=== PATIENT | female | born 1985 | race Caucasian/White ===

== ENCOUNTER 2017-03-21 08:38 | Emergency (ER) | payer SELFPAY ==
[2017-03-21 08:55] VITALS: BP 185/102; BMI 32.8
--- NOTE | 2017-03-21 09:33 | DR.GENAD ---
HPI - PCP Primary Care Physician: TERENCE - Complaint/Symptoms Chief Complaint Doctors Comments: Patient denies any history of head trauma. Patient admits to having a history of allergy and takes claritin. Chief Complaint:: PATIENT STATED THAT FOR THE LAST WEEK THE BACK OF HER HEAD HAS A SOFTBALL SIZE SPOT THAT SHE CAN'T STAND TO TOUCH OR LAY ON IT. - Source History Provided: Patient - Mode of Arrival Mode of Arrival: Ambulatory - Timing Onset of Chief Complaint: 03/14/17 PMH - PMH Past Medical History: Yes Past Medical History: Hypertension Past Surgical History: Yes Surgical History: , Cholecystectomy, Hysterectomy - Family History History of Family Medical Conditions: Yes Family Medical History: Diabetes Mellitus, Cancer, Coronary Artery Disease, Hypertension - Social History Does patient currently use any type of tobacco product: Yes Have you used tobacco products in the last 12 months: Yes Type of Tobacco Use: Cigarettes Does any household member use tobacco: No Alcohol Use: None Do you use any recreational Drugs:: No Lives With: Family Lives Where: Home - infectious screening In the last 2 months have you had wt loss of >10#?: NO Have you had fever, night sweats or hemotysis?: No Have you traveled outside the country in the last 6 months?: No Isolation: Standard ROS - Review of Systems Constitutional: negative: Diaphoresis Eyes: No Symptoms Reported ENTM: No Symptoms Reported Respiratoy: No Symptoms Reported Cardiovascular: No Symptoms Reported Gastrointestinal/Abdominal: No Symptoms Reported Genitourinary: No Symptoms Reported Neurological: No Symptoms Reported Musculoskeletal: No Symptoms Reported Integumentary: No Symptoms Reported Hematologic/Lymphatic: No Symptoms Reported Endocrine: No Symptoms Reported Psychiatric: No Symptoms Reported All Other Systems: Reviewed and Negative PE - Vital Signs Vitals: Temperature 97.7 F Pulse Rate 70 Respiratory Rate 20 Blood Pressure [Left Arm] 159/101 Blood Pressure 185/102 O2 Sat by Pulse Oximetry 97 - General Limitations: No Limitations General Appearance: Alert, In No Apparent Distress - Head Head Exam: Normal Inspection, Atraumatic - Eyes Eye exam: Normal Appearance, PERRL, EOMI - ENT ENT Exam: Normal Exam External Ear Exam: Normal External Inspection TM/Canal Exam: Bilateral Normal Nose Exam: Normal Nose Exam Mouth Exam: Normal Inspection Throat Exam: Normal Inspection - Neck Neck Exam: Normal Inspection - Chest Chest Inspection: Normal Inspection - Respiratory Respiratory Exam: Accessory Muscle Use Respiratory Exam: Bilateral Clear to Auscultation - Cardiovascular Cardiovascular Exam: Regular Rate, Normal Rhythm - Abdominal Exam Abdominal Exam: Normal Inspection Abdominal Tenderness: negative: RUQ, RLQ, LUQ, LLQ, Epigastrium, Suprapubic, Diffuse, Mild, Moderate, Severe, Other - Extremities Extremities Exam: Normal Inspection - Back Back Exam: Normal Inspection, Full ROM - Neurologic Neurological Exam: Alert, Oriented X3, CN II-XII Intact - Psychiatric Psychiatric Exam: Normal Affect, Normal Mood - Skin Skin Exam: Warm, Dry, Intact Course - Reevaluation 1st: Unchanged - Diagnosis Discharge Problem: normocephalic skull Allergic symptoms Qualifiers: Encounter type: initial encounter Qualified Code(s): T78.40XA - Allergy, unspecified, initial encounter - Discharge Plan Condition: Stable - Follow ups/Referrals Follow ups/Referrals: MARCEL PRATT [Primary Care Provider] - 3 days - Instructions
== END 2017-03-21 09:49 | disposition home or self-care (01) ==
LOC: ER 09:03
DX: T78.40XA Allergy, unspecified, initial encounter (principal)
CPT/HCPCS: 99281; 99282

== ENCOUNTER 2024-10-31 18:32 | Observation (INO) ==
[2024-10-31 18:50] LABS: MEAN PLATELET VOLUME 8.4 fL (7.4-11.0); RED CELL DISTRIBUTION WIDTH 14.8 % (11.6-16.5)
[2024-10-31 18:59] LABS: INR 0.98 (0.8-1.3)
--- NOTE | 2024-10-31 19:10 | CT ---
EXAM: BRAIN W/O CON HISTORY: L frontal headache took tylenol that didnt help, took motrin around 1400 that still has not helped. having right facial numbness and dizziness and a littel visual disburance in her rt. eye.; COMPARISON: None. TECHNIQUE: CT of the head without contrast FINDINGS: No hemorrhage or extra-axial collection. There is a 1.3 cm hypodensity in the left merritt radiata white matter which could represent subacute focus of ischemia. Appropriate ventricular size. The mastoid air cells are clear. No skull fracture. No suspicious bony lesion. IMPRESSION: 1.3 cm hypodensity left merritt radiata white matter suggesting a focus of subacute ischemia. No hemorrhagic transformation. All CT scans at this facility use dose modulation, iterative reconstruction, and/or weight based dosing when appropriate to reduce radiation dose to as low as reasonably achievable. THIS IS AN ELECTRONICALLY VERIFIED FINAL REPORT 10/31/2024 7:07 PM - Electronically signed by Mann Aranda MD
[2024-10-31 19:11] LABS: CHOL/HDL RATIO 3.1 (0.0-5.0); COR NA(FOR HYPERGLY) 141 mmol/L (136-145); CREATININE 0.74 mg/dL (0.55-1.02); eGFR NON BLACK RACES > 60 (>60)
--- NOTE | 2024-10-31 19:26 | DR.WEAKNES ---
HPI Time Seen Time Seen by Provider: 10/31/24 19:24 Primary Care Physician Primary Care Physician: gabe HPI Comment HPI Comment: Patient with complaint of left frontal headache and facial drooping that started this morning around 6 AM. She does have a history of a CVA in 2022 that left some residual weakness on the right upper extremity. About an hour prior to arrival she started having facial numbness and dizziness. She did have an episode of vomiting and nausea prior to arrival but denies any nausea at this time. Teleneurology was consulted. Complaints Chief Complaint:: Patient states this morning around 0600 she started having a L frontal headache she took tylenol that didnt help she took motrin around 1400 that still has not helped. About a hour ago she started having right facial numbness and dizziness and a littel visual disburance in her right eye. She did get nauseous before she came and vomitted x1 but denies nausea now. She states she had a previous cva in july 2022 that affected the right side. Self Treatment fo Chief Complaint: motrin 1400 Source History Provided: Patient Mode of Arrival Mode of Arrival: Wheelchair Timing Onset of Chief Complaint: 10/31/24 Symptom Onset: Known Context Stroke Symptoms: Dizziness PMH PMH Past Medical History: Yes Past Medical History: CVA, Dyslipidemia, Hypertension and Cancer Past Medical History Comment: right kidney ca Past Surgical History: Yes Surgical History: , Cholecystectomy and Hysterectomy Past Surgical History Comment: mass removed from left breast Family History History of Family Medical Conditions: Yes Family Medical History: Diabetes Mellitus, Cancer, Coronary Artery Disease and Hypertension Social History Does patient currently use any type of tobacco product: Yes Have you used tobacco products in the last 12 months: Yes Type of Tobacco Use: Cigarettes Does any household member use tobacco: Yes Alcohol Use: None Do you use any recreational Drugs:: No Lives With: Family Lives Where: Home Travel Risk Coronavirus risk:travel/contact w/high risk person: No Has patient experienced Coronavirus symptoms: No Infectious screening In the last 2 months have you had wt loss of >10#?: NO Have you had fever, night sweats or hemotysis?: No Have you traveled outside the country in the last 6 months?: No Isolation: Standard ROS Review of Systems Constitutional: No Symptoms Reported Eyes: No Symptoms Reported ENTM: No Symptoms Reported Respiratoy: No Symptoms Reported Cardiovascular: No Symptoms Reported Gastrointestinal/Abdominal: No Symptoms Reported Genitourinary: No Symptoms Reported Neurological: See HPI Musculoskeletal: No Symptoms Reported Integumentary: No Symptoms Reported Hematologic/Lymphatic: No Symptoms Reported Endocrine: No Symptoms Reported Psychiatric: No Symptoms Reported All Other Systems: Reviewed and Negative PE Vital Signs Vitals: Vital Signs Temperature 98.3 F Pulse Rate 68 Pulse Rate 65 Pulse Rate 65 Pulse Rate 66 Pulse Rate 68 Pulse Rate 69 Pulse Rate 69 Pulse Rate 92 Pulse Rate 72 Pulse Rate 68 Pulse Rate 67 Pulse Rate 68 Pulse Rate 68 Pulse Rate 68 Pulse Rate 69 Pulse Rate 67 Pulse Rate 67 Pulse Rate 69 Pulse Rate 69 Pulse Rate 69 Pulse Rate 73 Pulse Rate 71 Pulse Rate 72 Pulse Rate 70 Pulse Rate 70 Pulse Rate 73 Pulse Rate 71 Pulse Rate 83 Respiratory Rate 20 Respiratory Rate 21 Respiratory Rate 21 Respiratory Rate 23 Respiratory Rate 23 Respiratory Rate 26 Respiratory Rate 27 Respiratory Rate 23 Respiratory Rate 26 Respiratory Rate 27 Respiratory Rate 25 Respiratory Rate 26 Respiratory Rate 28 Respiratory Rate 27 Respiratory Rate 25 Respiratory Rate 24 Respiratory Rate 23 Respiratory Rate 16 Blood Pressure 156/81 Blood Pressure 152/80 Blood Pressure 168/89 Blood Pressure 171/87 Blood Pressure 191/93 Blood Pressure 185/88 Blood Pressure 186/90 Blood Pressure 187/90 Blood Pressure 191/92 Blood Pressure 183/88 Blood Pressure 184/82 Blood Pressure 193/94 Blood Pressure 187/93 Blood Pressure 189/104 Blood Pressure 187/106 Blood Pressure 178/103 Blood Pressure 176/106 Blood Pressure 173/108 Blood Pressure 173/115 Blood Pressure 176/94 Blood Pressure 178/88 Blood Pressure 198/95 Blood Pressure 199/93 Blood Pressure 215/111 O2 Sat by Pulse Oximetry 95 O2 Sat by Pulse Oximetry 96 O2 Sat by Pulse Oximetry 96 O2 Sat by Pulse Oximetry 96 O2 Sat by Pulse Oximetry 98 O2 Sat by Pulse Oximetry 97 O2 Sat by Pulse Oximetry 97 O2 Sat by Pulse Oximetry 98 O2 Sat by Pulse Oximetry 97 O2 Sat by Pulse Oximetry 97 O2 Sat by Pulse Oximetry 97 O2 Sat by Pulse Oximetry 98 O2 Sat by Pulse Oximetry 98 O2 Sat by Pulse Oximetry 97 O2 Sat by Pulse Oximetry 97 O2 Sat by Pulse Oximetry 98 O2 Sat by Pulse Oximetry 98 O2 Sat by Pulse Oximetry 98 O2 Sat by Pulse Oximetry 98 O2 Sat by Pulse Oximetry 97 O2 Sat by Pulse Oximetry 97 O2 Sat by Pulse Oximetry 97 O2 Sat by Pulse Oximetry 98 O2 Sat by Pulse Oximetry 97 O2 Sat by Pulse Oximetry 97 O2 Sat by Pulse Oximetry 97 O2 Sat by Pulse Oximetry 98 O2 Sat by Pulse Oximetry 97 General Limitations: No Limitations General Appearance: Alert and In No Apparent Distress Head Head Exam: Normal Inspection Eyes Eye exam: Normal Appearance Eyelids: Normal Inspection: Bilateral Pupils: Regular, Round: Bilateral Sclera/Conjunctival: Normal Inspection: Bilateral Anterior Chamber: Normal Inspection: Bilateral ENT ENT Exam: Normal Exam Mouth Exam: Normal Inspection Throat Exam: Normal Inspection Neck Neck Exam: Normal Inspection Chest Chest Inspection: Normal Inspection Respiratory Respiratory Exam: Normal Lung Sounds Bilat Respiratory Exam: Bilateral: Clear to Auscultation Cardiovascular Cardiovascular Exam: Regular Rate and Normal Rhythm Abdominal Exam Abdominal Exam: Normal Inspection, Normal Bowel Sounds and Soft Extremities Extremities Exam: Normal Inspection Back Back Exam: Normal Inspection Neurologic Neurological Exam: Alert and Oriented X3 Psychiatric Psychiatric Exam: Normal Affect and Normal Mood Skin Skin Exam: Warm, Dry, Intact and Normal Color COURSE Treatment Treatment: Possible stroke and case discussed with teleneuro and admitting physician. Discussed results of workup with patient and family and they are agreeable to admission. Consultation Consultation Comments: Discussed case with teleneurology. They recommended treatment with Plavix and aspirin. Patient was already taking regular Plavix but 300 mg loading dose was recommended for today. CT angio of head and neck was ordered. MRI recommended for the morning with observation admission. Discussed case with Dr. Welsh and he is agreeable to admission. [facility] Labs Reviewed Laboratory Results Reviewed?: Yes 10/31/24 18:38 10/31/24 18:38 Laboratory: WBC 12.6 X10^3/uL (3.6-10.0) H 10/31/24 18:38 RBC 4.89 X10^6/uL (3.5-5.4) 10/31/24 18:38 Hgb 13.9 g/dL (12.0-16.0) 10/31/24 18:38 Hct 41.8 % (36.0-47.0) 10/31/24 18:38 MCV 85.4 fL (80.0-100.0) 10/31/24 18:38 MCH 28.3 pg (27.0-34.0) 10/31/24 18:38 MCHC 33.2 g/dL (33.0-35.0) 10/31/24 18:38 RDW 14.8 % (11.6-16.5) 10/31/24 18:38 Plt Count 290 X10^3/uL (150.0-450.0) 10/31/24 18:38 MPV 8.4 fL (7.4-11.0) 10/31/24 18:38 Neut % (Auto) 55.0 % (42.0-75.0) 10/31/24 18:38 Lymph % (Auto) 36.2 % (21.0-51.0) 10/31/24 18:38 [place] % (Auto) 6.7 % (0.0-13.0) 10/31/24 18:38 Eos % (Auto) 1.7 % (0.9-2.9) 10/31/24 18:38 Baso % (Auto) 0.4 % (0.2-1.0) 10/31/24 18:38 Neut # (Auto) 6.9 x10^3/uL (2.2-4.8) H 10/31/24 18:38 Lymph # (Auto) 4.6 X10^3/uL (1.3-2.9) H 10/31/24 18:38 [place] # (Auto) 0.8 x10^3/uL (0.3-0.8) 10/31/24 18:38 Eos # (Auto) 0.2 x10^3/uL (0.0-0.2) 10/31/24 18:38 Baso # (Auto) 0.0 X10^3/uL (0.0-0.1) 10/31/24 18:38 Absolute Nucleated RBC 0.0 /100WBC 10/31/24 18:38 PT 13.1 SECONDS (11.8-14.3) 10/31/24 18:38 INR Target Range - 10/31/24 18:38 INR 0.98 (0.8-1.3) 10/31/24 18:38 APTT 35.8 SECONDS (22.9-36.5) 10/31/24 18:38 PTT Comment - 10/31/24 18:38 Fibrinogen 408 mg/dL (239-489) 10/31/24 18:38 Sodium 141 mmol/L (136-145) 10/31/24 18:38 Corrected Sodium 141 mmol/L (136-145) 10/31/24 18:38 Potassium 3.3 mmol/L (3.5-5.1) L 10/31/24 18:38 Chloride 104 mmol/L (98-107) 10/31/24 18:38 Carbon Dioxide 26.8 mmol/L (21-32) 10/31/24 18:38 BUN 7 mg/dL (7-18) 10/31/24 18:38 Creatinine 0.74 mg/dL (0.55-1.02) 10/31/24 18:38 Est GFR (MDRD) Af Amer > 60 (>60) 10/31/24 18:38 Est GFR (MDRD) Non-Af > 60 (>60) 10/31/24 18:38 Glucose 111 mg/dL (65-99) H 10/31/24 18:38 Calcium 8.7 mg/dL (8.5-10.1) 10/31/24 18:38 Corrected Calcium TNP 10/31/24 18:38 Total Bilirubin 0.80 mg/dL (0.2-1.0) 10/31/24 18:38 AST 13 Units/L (15-37) L 10/31/24 18:38 ALT 20 Units/L (12-78) 10/31/24 18:38 Alkaline Phosphatase 87 Units/L (46-116) 10/31/24 18:38 Creatine Kinase 65 Units/L (26-192) 10/31/24 18:38 Troponin I High Sens 5.4 ng/L (4.0-60.0) 10/31/24 18:38 Total Protein 7.9 g/dL (6.4-8.2) 10/31/24 18:38 Albumin 3.7 g/dL (3.4-5.0) 10/31/24 18:38 Globulin 4.2 g/dL (2.5-4.5) 10/31/24 18:38 Albumin/Globulin Ratio 0.9 Ratio (1.1-2.1) L 10/31/24 18:38 Triglycerides 136 mg/dL (0-150) 10/31/24 18:38 Cholesterol 97 mg/dL (0-200) 10/31/24 18:38 LDL Cholesterol, Calc 38.8 mg/dL (0-100) 10/31/24 18:38 HDL Cholesterol 31 mg/dL (40-60) L 10/31/24 18:38 Cholesterol/HDL Ratio 3.1 (0.0-5.0) 10/31/24 18:38 Specimen Type Clean catch urine 10/31/24 20:43 Urine Color Yellow (YELLOW) 10/31/24 20:43 Urine Appearance Clear (CLEAR) 10/31/24 20:43 Urine pH 6.0 (5.0 - 8.0) 10/31/24 20:43 Ur Specific [place] 1.010 (1.000-1.030) 10/31/24 20:43 Urine Protein 2+ (NEGATIVE) 10/31/24 20:43 Urine Glucose (UA) Negative (NEGATIVE) 10/31/24 20:43 Urine Ketones Negative (NEGATIVE) 10/31/24 20:43 Urine Blood 1+ (NEGATIVE) 10/31/24 20:43 Urine Nitrite Positive (NEGATIVE) 10/31/24 20:43 Urine Bilirubin Negative (NEGATIVE) 10/31/24 20:43 Urine Urobilinogen Normal (NORMAL) 10/31/24 20:43 Ur Leukocyte Esterase Negative (NEGATIVE) 10/31/24 20:43 Urine RBC 0-2 /HPF (0-3) 10/31/24 20:43 Urine WBC 0-2 /HPF (0-5) 10/31/24 20:43 Ur Squamous Epith Cells Few /HPF (NEGATIVE) 10/31/24 20:43 Urine Bacteria 3+ /HPF (NEGATIVE) 10/31/24 20:43 Ur Culture Indicated? Yes/culture set up 10/31/24 20:43 Other Results Comments: [id number] 1985 Sex: F Location: ER Order Number(s): [id number] Procedure(s):BRAIN CT W/O CON Ordering Physician: Hollis Garcia Primary Care: Marcel Welsh M.D. Service Date: 10/31/24 Service Time: 1833 EXAM: BRAIN W/O CON HISTORY: L frontal headache took tylenol that didnt help, took motrin around 1400 that still has not helped. having right facial numbness and dizziness and a littel visual disburance in her rt. eye.; COMPARISON: None. TECHNIQUE: CT of the head without contrast FINDINGS: No hemorrhage or extra-axial collection. There is a 1.3 cm hypodensity in the left merritt radiata white matter which could represent subacute focus of ischemia. Appropriate ventricular size. The mastoid air cells are clear. No skull fracture. No suspicious bony lesion. IMPRESSION: 1.3 cm hypodensity left merritt radiata white matter suggesting a focus of subacute ischemia. No hemorrhagic transformation. All CT scans at this facility use dose modulation, iterative reconstruction, and/or weight based dosing when appropriate to reduce radiation dose to as low as reasonably achievable. THIS IS AN ELECTRONICALLY VERIFIED FINAL REPORT 10/31/2024 7:07 PM - Electronically signed by Mann Aranda MD Name: ARELI RUIZ : 1985 Sex: F Location: ER Order Number(s): [id number] Procedure(s):CHEST, 1 VIEW X-RAY Ordering Physician: Hollis Garcia Primary Care: Marcel Welsh M.D. Service Date: 10/31/24 Service Time: 1840 EXAM: CHEST, 1 VIEW HISTORY: L frontal headache took tylenol that didnt help, took motrin around 1400 that still has not helped. having right facial numbness and dizziness and a littel visual disburance in her rt. eye.; COMPARISON: None available. FINDINGS: The trachea is midline. The cardiac silhouette is unremarkable . The lungs are clear without focal infiltrate or effusion. The bony thorax is unremarkable. IMPRESSION: No acute cardiopulmonary disease. THIS IS AN ELECTRONICALLY VERIFIED FINAL REPORT 10/31/2024 8:43 PM - Electronically signed by Yoan Ascencio MD Name: ARELI RUIZ : 1985 Sex: F Location: ER Order Number(s): [id number] Procedure(s):BRAIN CTA Ordering Physician: Hollis Garcia Primary Care: Marcel Welsh M.D. Service Date: 10/31/24 Service Time: 190 EXAM: BRAIN CTA HISTORY: Left frontal headache took tylenol that didnt help, took motrin around 1400 that still has not helped. having right facial numbness and dizziness and a littel visual disburance in her rt. eye.; COMPARISON: CT of the brain without contrast same day 6:44 p.m. TECHNIQUE: CT angiography of the brain with intravenous contrast. Three-dimensional reconstructions and/or MIPS images were produced and reviewed. FINDINGS: The right intracranial internal carotid artery is patent. The right MCA is patent. Right ALLEN is patent. The left intracranial internal carotid artery is patent. The left MCA is patent. The left ALLEN is patent. Vertebral arteries are patent at the skull base. The basilar artery is patent. The bilateral posterior cerebral arteries are patent. No [id number] aneurysm. The bilateral ophthalmic branches are patent. No abnormal enhancement. Hypodensity in the left merritt radiata white matter is redemonstrated suggesting remote insult possibly lacunar infarct. IMPRESSION: No high-grade stenosis or occlusion in the large arteries of the brain. All CT scans at this facility use dose modulation, iterative reconstruction, and/or weight based dosing when appropriate to reduce radiation dose to as low as reasonably achievable. THIS IS AN ELECTRONICALLY VERIFIED FINAL REPORT 10/31/2024 8:44 PM - Electronically signed by Mann Aranda MD Name: ARELI RUIZ [facility]#: [id number] : 1985 Sex: F Location: Order Number(s): [id number] Procedure(s):CAROTID CTA Ordering Physician: Hollis Garcia Primary Care: Marcel Welsh M.D. Service Date: 10/31/24 Service Time: 1905 EXAM: CAROTID CTA HISTORY: Left frontal headache took tylenol that didnt help, took motrin around 1400 that still has not helped. having right facial numbness and dizziness and a littel visual disburance in her rt. eye.; COMPARISON: None. TECHNIQUE: CT angiography of the neck with intravenous contrast. Three-dimensional reconstructions and/or MIPS images were produced and reviewed. FINDINGS: The right common carotid artery is patent. The right carotid bulb is patent. The right extracranial internal carotid artery is patent. The right vertebral artery is patent. The left common carotid artery is patent. The left carotid bulb is patent. The left extracranial internal carotid artery is patent. The left vertebral artery is patent. The lung apices are clear. No cervical lymphadenopathy. The airway is midline. No suspicious bony lesion. IMPRESSION: No high-grade stenosis or occlusion in the large arteries of the neck. All CT scans at this facility use dose modulation, iterative reconstruction, and/or weight based dosing when appropriate to reduce radiation dose to as low as reasonably achievable. THIS IS AN ELECTRONICALLY VERIFIED FINAL REPORT 10/31/2024 8:41 PM - Electronically signed by Mann Aranda MD Opioid Opioid Risk Tool Age (Abelino box if 16-45): Yes History of Preadolescent Sexual Abuse: No Total: 1 Total Score Risk Category: Low Risk Copyright: [facility] predicting aberrant behaviors Discharge Plan Diagnosis Discharge Problem: Acute ischemic stroke, Urinary tract infection Discharge Plan Patient Disposition: 09 ADMITTED INPATIENT Condition: Stable Prescriptions: No Action furosemide 40 mg tablet 40 mg PO QDAY atorvastatin 40 mg tablet 40 mg PO QDAY clonidine HCl 0.1 mg tablet 0.1 mg PO TID venlafaxine 75 mg capsule,extended release 24hr 75 mg PO QDAY amlodipine 2.5 mg tablet 2.5 mg PO BID potassium chloride 10 mEq tablet extended release 10 meq PO QDAY clopidogrel 75 mg tablet 75 mg PO QDAY hydroxychloroquine 200 mg tablet 200 mg PO BID metoprolol tartrate 25 mg tablet 25 mg PO BID Health Concerns: Post Hospitalization: new medications and changes needed to prevent readmission or further decline. Pt educated and given instructions on all concerns. Plan of Treatment: Continue with present treatment and follow up plan. Pt is to keep follow up appointment as instructed and take medications as ordered. Orders to Discharge Patient Discharge Orders: Transfer (Routine); Ordered 10/31/24 Ordered By: Hollis Garcia Follow ups/Referrals Follow ups/Referrals: MARCEL WELSH [Primary Care Provider, MEDICAL] - 3 days Instructions Stand Alone Forms: Find Help Web Site, Post Hospital Follow Up Care Print Language: NIGERIEN
[2024-10-31] MEDS: ASPIRIN PO STA (19:31)
[2024-10-31] MEDS: PLAVIX PO STA (19:32)
--- NOTE | 2024-10-31 19:40 | EKG ---
Test Reason : Stroke like symptoms Blood Pressure : */* mmHG Vent. Rate : 72 BPM Atrial Rate : 72 BPM P-R Int : 162 ms QRS Dur : 86 ms QT Int : 408 ms P-R-T Axes : 44 29 24 degrees QTc Int : 446 ms Normal sinus rhythm Normal ECG No previous ECGs available Confirmed by Corey Juarez MD ([id number]) on 10/31/2024 7:50:35 PM Referred By: Confirmed By: Corey Juarez MD
--- NOTE | 2024-10-31 20:28 | TELESTROKE ---
[facility] Consult Date of Consult Date of Exam: 10/31/24 Time of Arrival to the ED: 18:30 Allergies Allergies Allergy/AdvReac Type Severity Reaction Status Date / Time No Known Allergies Allergy Verified 10/31/24 18:50 Vital Signs Vital Signs: Temp Pulse Resp BP Pulse Ox O2 Del Method 10/31/24 19:50 178/103 10/31/24 19:50 69 25 H 97 10/31/24 19:45 73 97 10/31/24 19:45 176/106 10/31/24 19:40 71 97 10/31/24 19:40 173/108 10/31/24 19:36 72 98 10/31/24 19:36 173/115 10/31/24 19:30 70 24 97 10/31/24 19:30 176/94 10/31/24 19:25 70 97 10/31/24 19:25 178/88 10/31/24 19:21 73 23 97 10/31/24 19:21 198/95 10/31/24 19:16 71 98 10/31/24 19:15 199/93 10/31/24 18:42 98.3 F 83 16 215/111 97 Room Air History of Present Illness History of Present Illness: [facility] Tele[facility]rology Consult Services Patient Name:Leann Vidal Date of :1985 Identification Number: Date of Service:10/31/2024 18:38:09 Impression: 39-year-old female with hypertension, hyperlipidemia, history of stroke with residual right hand weakness and clumsiness, who had a left frontal headache this morning, then developed left forehead numbness at 5:00 p.m. Here NIHSS is 1. Head CT shows a hypodnesity in left merritt radiata suggestive of chronic or subacute stroke. She is not a thrombolytic candidate due to mildness of symptoms and stroke seen on head CT which could theoretically be recent. PLAN - fu CTA head/neck; images not available at this time; please call TS back immediately if there are acute abnormalities - MRI brain w/o contrast - TTE w/bubble - check a1c and LDL - monitor on tele for afib - neuro to follow --- Our recommendations are outlined below. Recommendations: Stroke/Telemetry Floor Neuro Checks (Q4) Bedside Swallow Eval DVT Prophylaxis IV Fluids, Normal Saline Head of Bed 30 Degrees Euglycemia and Avoid Hyperthermia (PRN Acetaminophen) Sign Out: Discussed with Emergency Department Provider Metrics: Last Known Well: 10/31/2024 17:00:00 Dispatch Time: 10/31/2024 18:38:09 Arrival Time: 10/31/2024 18:30:00 Initial Response Time: 10/31/2024 18:40:36Symptoms: left sided headache. Initial patient interaction: 10/31/2024 18:50:37 NIHSS Assessment Completed: 10/31/2024 19:00:45Patient is not a candidate for Thrombolytic. Thrombolytic Medical Decision: 10/31/2024 19:00:50Patient was not deemed candidate for Thrombolytic because of following reasons: Stroke severity too mild (non-disabling) . CT Head: I personally reviewed all the CT images that were available to me and it showed: left merritt radiata hypodensity Primary Provider Notified of Diagnostic Impression and Management Plan on: 10/31/2024 19:15:51 History of Present Illness:Patient is a 39 year old Female. Patient was brought by private transportation with symptoms of left sided headache. 39 year old female with hypertension, hyperlipidemia, and a history of stroke with residual right hand weakness and clumsiness who developed a new left frontal headache this morning. Around 5 p.m. this afternoon she developed numbness and tingling over a patch of her forehead. Here in the ER, Stroke Scale is 1 for subtle sensory asymmetry. She also has slower rapid finger movements in her right hand which is chronic since her old stroke. Past Medical History: Hypertension Hyperlipidemia Stroke No Anticoagulant use Antiplatelet use:Yesplavix Reviewed EMR for current medications Allergies: Reviewed Social History: Drug Use: No Family History: There is no family history of premature cerebrovascular disease pertinent to this consultation ROS : 14 Points Review of Systems was performed and was negative except mentioned in HPI. Past Surgical History: There Is No Surgical History Contributory To Todays Visit Examination: 1A: Level of Consciousness - Alert; keenly responsive+ 0 1B: Ask Month and Age - Both Questions Right+ 0 1C: Blink Eyes & Squeeze Hands - Performs Both Tasks+ 0 2: Test Horizontal Extraocular Movements - Normal+ 0 3: Test Visual Sexton - No Visual Loss+ 0 4: Test Facial Palsy (Use Grimace if Obtunded) - Normal symmetry+ 0 5A: Test Left Arm Motor Drift - No Drift for 10 Seconds+ 0 5B: Test Right Arm Motor Drift - No Drift for 10 Seconds+ 0 6A: Test Left Leg Motor Drift - No Drift for 5 Seconds+ 0 6B: Test Right Leg Motor Drift - No Drift for 5 Seconds+ 0 7: Test Limb Ataxia (FNF/Heel-Sanchez) - No Ataxia+ 0 8: Test Sensation - Mild-Moderate Loss: Less Sharp/More Dull+ 1 9: Test Language/Aphasia - Normal; No aphasia+ 0 10: Test Dysarthria - Normal+ 0 11: Test Extinction/Inattention - No abnormality+ 0 NIHSS Score:1 Pre-Morbid Modified [place] Scale:1 Points = No significant disability despite symptoms; able to carry out all usual duties and activities Spoke with :kendrick owens This consult was conducted in real time using interactive audio and video technology. Patient was informed of the technology being used for this visit and agreed to proceed. Patient located in hospital and provider located at home/office setting. Patient is being evaluated for possible acute neurologic impairment and high probability of imminent or life-threatening deterioration. I spent total of 20 minutes providing care to this patient, including time for face to face visit via telemedicine, review of medical records, imaging studies and discussion of findings with providers, the patient and/or family. Dr Cony Sr [facility] For Inpatient follow-up with [facility] physician please call [facility] at . As we are not an outpatient service for any post hospital discharge needs please contact the hospital for assistance. If you have any questions for the [facility] physicians or need to reconsult for clinical or diagnostic changes please contact us via [facility] at . Medical Decision Making 10/31/24 18:38 10/31/24 18:38 Labs: Laboratory Results - last 24 hr 10/31/24 18:38 WBC 12.6 H RBC 4.89 Hgb 13.9 Hct 41.8 MCV 85.4 MCH 28.3 MCHC 33.2 RDW 14.8 Plt Count 290 MPV 8.4 Neut % (Auto) 55.0 Lymph % (Auto) 36.2 [place] % (Auto) 6.7 Eos % (Auto) 1.7 Baso % (Auto) 0.4 Neut # (Auto) 6.9 H Lymph # (Auto) 4.6 H [place] # (Auto) 0.8 Eos # (Auto) 0.2 Baso # (Auto) 0.0 Absolute Nucleated RBC 0.0 PT 13.1 INR Target Range - INR 0.98 APTT 35.8 PTT Comment - Fibrinogen 408 Sodium 141 Corrected Sodium 141 Potassium 3.3 L Chloride 104 Carbon Dioxide 26.8 BUN 7 Creatinine 0.74 Est GFR (MDRD) Af Amer > 60 Est GFR (MDRD) Non-Af > 60 Glucose 111 H Calcium 8.7 Corrected Calcium TNP Total Bilirubin 0.80 AST 13 L ALT 20 Alkaline Phosphatase 87 Creatine Kinase 65 Troponin I High Sens 5.4 Total Protein 7.9 Albumin 3.7 Globulin 4.2 Albumin/Globulin Ratio 0.9 L Triglycerides 136 Cholesterol 97 LDL Cholesterol, Calc 38.8 HDL Cholesterol 31 L Cholesterol/HDL Ratio 3.1
--- NOTE | 2024-10-31 20:45 | CT ---
EXAM: CAROTID CTA HISTORY: Left frontal headache took tylenol that didnt help, took motrin around 1400 that still has not helped. having right facial numbness and dizziness and a littel visual disburance in her rt. eye.; COMPARISON: None. TECHNIQUE: CT angiography of the neck with intravenous contrast. Three-dimensional reconstructions and/or MIPS images were produced and reviewed. FINDINGS: The right common carotid artery is patent. The right carotid bulb is patent. The right extracranial internal carotid artery is patent. The right vertebral artery is patent. The left common carotid artery is patent. The left carotid bulb is patent. The left extracranial internal carotid artery is patent. The left vertebral artery is patent. The lung apices are clear. No cervical lymphadenopathy. The airway is midline. No suspicious bony lesion. IMPRESSION: No high-grade stenosis or occlusion in the large arteries of the neck. All CT scans at this facility use dose modulation, iterative reconstruction, and/or weight based dosing when appropriate to reduce radiation dose to as low as reasonably achievable. THIS IS AN ELECTRONICALLY VERIFIED FINAL REPORT 10/31/2024 8:41 PM - Electronically signed by Mann Aranda MD
--- NOTE | 2024-10-31 20:46 | RAD ---
EXAM: CHEST, 1 VIEW HISTORY: L frontal headache took tylenol that didnt help, took motrin around 1400 that still has not helped. having right facial numbness and dizziness and a littel visual disburance in her rt. eye.; COMPARISON: None available. FINDINGS: The trachea is midline. The cardiac silhouette is unremarkable . The lungs are clear without focal infiltrate or effusion. The bony thorax is unremarkable. IMPRESSION: No acute cardiopulmonary disease. THIS IS AN ELECTRONICALLY VERIFIED FINAL REPORT 10/31/2024 8:43 PM - Electronically signed by Yoan Ascencio MD
--- NOTE | 2024-10-31 20:47 | CT ---
EXAM: BRAIN CTA HISTORY: Left frontal headache took tylenol that didnt help, took motrin around 1400 that still has not helped. having right facial numbness and dizziness and a littel visual disburance in her rt. eye.; COMPARISON: CT of the brain without contrast same day 6:44 p[address]m. TECHNIQUE: CT angiography of the brain with intravenous contrast. Three-dimensional reconstructions and/or MIPS images were produced and reviewed. FINDINGS: The right intracranial internal carotid artery is patent. The right MCA is patent. Right ALLEN is patent. The left intracranial internal carotid artery is patent. The left MCA is patent. The left ALLEN is patent. Vertebral arteries are patent at the skull base. The basilar artery is patent. The bilateral posterior cerebral arteries are patent. No [id number]-[id number] aneurysm. The bilateral ophthalmic branches are patent. No abnormal enhancement. Hypodensity in the left merritt radiata white matter is redemonstrated suggesting remote insult possibly lacunar infarct. IMPRESSION: No high-grade stenosis or occlusion in the large arteries of the brain. All CT scans at this facility use dose modulation, iterative reconstruction, and/or weight based dosing when appropriate to reduce radiation dose to as low as reasonably achievable. THIS IS AN ELECTRONICALLY VERIFIED FINAL REPORT 10/31/2024 8:44 PM - Electronically signed by Mann Aranda MD
[2024-10-31 20:52] LABS: BLOOD/HEMOGLOBIN,URINE 1+ (NEGATIVE); LEUKOCYTE ESTERASE ,URINE NEGATIVE (NEGATIVE); NITRITES,URINE POSITIVE (NEGATIVE)
[2024-10-31] MEDS: CATAPRES TAB 0.1 MG PO ONE (21:00)
[2024-10-31 21:16] LABS: APPEARANCE,URINE CLEAR (CLEAR); SQUAMOUS EPITHELIAL CELL,UR FEW /HPF (NEGATIVE)
[2024-10-31] MEDS: ROCEPHIN VIAL 1 GRAM IVP ONE (22:16)
[2024-10-31] MEDS ORDERED: ULTRAM PO PRN (23:16)
[2024-10-31] MEDS ORDERED: MORPHINE SULFATE INJ 2 MG INJ IVP PRN (23:16)
[2024-10-31] MEDS ORDERED: TYLENOL 325 MG TAB PO PRN (23:16)
[2024-10-31] MEDS ORDERED: ZOFRAN INJ 4 MG VIAL IVP PRN (23:16)
[2024-10-31 23:53] VITALS: BMI 40.4
[2024-11-01] MEDS: K-DUR TAB 20 MEQ PO SCH ×2 (00:46→11:32)
[2024-11-01] MEDS: CONSULT PHARMACY - POTASSIUM & MAGNESIUM XX SCH (02:51)
[2024-11-01] MEDS: CATAPRES TAB 0.1 MG PO SCH (05:37)
[2024-11-01 06:22] LABS: MEAN PLATELET VOLUME 8.5 fL (7.4-11.0); RED CELL DISTRIBUTION WIDTH 14.9 % (11.6-16.5)
[2024-11-01 06:41] LABS: COR CA(FOR HYPOALB) 9.1 mg/dL (8.5-10.1); CREATININE 0.57 mg/dL (0.55-1.02); eGFR NON BLACK RACES > 60 (>60)
[2024-11-01] MEDS ORDERED: CONSULT PHARMACY - POTASSIUM & MAGNESIUM XX SCH (08:00)
[2024-11-01] MEDS ORDERED: NORVASC TAB 2.5 MG ONE (08:13)
--- NOTE | 2024-11-01 08:29 | DR.H&P ---
H&P History & Physical for Day of: H&P Date: 10/31/24 Chief Complaint Chief Complaint: POSSIBLE STROKE History of Present Illness History of Present Illness: Patient with complaint of left frontal headache and facial drooping that started this morning around 6 AM. She does have a history of a CVA in 2022 that left some residual weakness on the right upper extremity. About an hour prior to arrival she started having facial numbness and dizziness. She did have an episode of vomiting and nausea prior to arrival but denies any nausea at this time. Teleneurology was consulted. Past Medical History Past Medical History: CVA, Dyslipidemia, Hypertension and Cancer Past Surgical History Surgical History: , Cholecystectomy and Hysterectomy Family History Family Medical History: Cancer and ND Social History Does patient currently use any type of tobacco product: Yes Have you used tobacco products in the last 12 months: Yes Type of Tobacco Use: Cigarettes Does any household member use tobacco: No Alcohol Use: None Drug Use: None Medications Home Medications: Home Medications Medication Instructions Recorded Confirmed Type amlodipine 2.5 mg tablet 2.5 mg PO BID 10/31/2410/31 History atorvastatin 40 mg tablet 40 mg PO QDAY 10/31/2410/31 History clonidine HCl 0.1 mg tablet 0.1 mg PO TID 10/31/24 History clopidogrel 75 mg tablet 75 mg PO QDAY 10/31/2410/31 History furosemide 40 mg tablet 40 mg PO QDAY 10/31/2410/31 History hydroxychloroquine 200 mg tablet 200 mg PO BID 5 10/31/24 History metoprolol tartrate 25 mg tablet 25 mg PO BID 10/31/24 10/31/24 History potassium chloride 10 mEq 10 meq PO QDAY 10/31/2410/15 History tablet,extended release venlafaxine 75 mg capsule,extended 75 mg PO QDAY 10/3110/31/24 History release 24 hr Allergies Allergies Allergy/AdvReac Type Severity Reaction Status Date / Time No Known Allergies Allergy Verified 10/31/24 18:50 Labs 11/01/24 05:42 11/01/24 05:42 Labs: Laboratory WBC 10.0 X10^3/uL (3.6-10.0) 11/01/24 05:42 RBC 4.64 X10^6/uL (3.5-5.4) 11/01/24 05:42 Hgb 13.4 g/dL (12.0-16.0) 11/01/24 05:42 Hct 39.7 % (36.0-47.0) 11/01/24 05:42 MCV 85.5 fL (80.0-100.0) 11/01/24 05:42 MCH 28.9 pg (27.0-34.0) 11/01/24 05:42 MCHC 33.8 g/dL (33.0-35.0) 11/01/24 05:42 RDW 14.9 % (11.6-16.5) 11/01/24 05:42 Plt Count 275 X10^3/uL (150.0-450.0) 11/01/24 05:42 MPV 8.5 fL (7.4-11.0) 11/01/24 05:42 Neut % (Auto) 57.8 % (42.0-75.0) 11/01/24 05:42 Lymph % (Auto) 31.1 % (21.0-51.0) 11/01/24 05:42 [place] % (Auto) 8.3 % (0.0-13.0) 11/01/24 05:42 Eos % (Auto) 2.4 % (0.9-2.9) 11/01/24 05:42 Baso % (Auto) 0.4 % (0.2-1.0) 11/01/24 05:42 Neut # (Auto) 5.8 x10^3/uL (2.2-4.8) H 11/01/24 05:42 Lymph # (Auto) 3.1 X10^3/uL (1.3-2.9) H 11/01/24 05:42 [place] # (Auto) 0.8 x10^3/uL (0.3-0.8) 11/01/24 05:42 Eos # (Auto) 0.2 x10^3/uL (0.0-0.2) 11/01/24 05:42 Baso # (Auto) 0.0 X10^3/uL (0.0-0.1) 11/01/24 05:42 Absolute Nucleated RBC 0.1 /100WBC 11/01/24 05:42 PT 13.1 SECONDS (11.8-14.3) 10/31/24 18:38 INR Target Range - 10/31/24 18:38 INR 0.98 (0.8-1.3) 10/31/24 18:38 APTT 35.8 SECONDS (22.9-36.5) 10/31/24 18:38 PTT Comment - 10/31/24 18:38 Fibrinogen 408 mg/dL (239-489) 10/31/24 18:38 Sodium 141 mmol/L (136-145) 11/01/24 05:42 Corrected Sodium TNP 11/01/24 05:42 Potassium 3.6 mmol/L (3.5-5.1) 11/01/24 05:42 Chloride 105 mmol/L (98-107) 11/01/24 05:42 Carbon Dioxide 26.7 mmol/L (21-32) 11/01/24 05:42 BUN 6 mg/dL (7-18) L 11/01/24 05:42 Creatinine 0.57 mg/dL (0.55-1.02) 11/01/24 05:42 Est GFR (MDRD) Af Amer > 60 (>60) 11/01/24 05:42 Est GFR (MDRD) Non-Af > 60 (>60) 11/01/24 05:42 Glucose 98 mg/dL (65-99) 11/01/24 05:42 Calcium 8.5 mg/dL (8.5-10.1) 11/01/24 05:42 Corrected Calcium 9.1 mg/dL (8.5-10.1) 11/01/24 05:42 Magnesium 2.0 mg/dL (2.0-2.9) 11/01/24 05:42 Total Bilirubin 0.60 mg/dL (0.2-1.0) 11/01/24 05:42 AST 12 Units/L (15-37) L 11/01/24 05:42 ALT 18 Units/L (12-78) 11/01/24 05:42 Alkaline Phosphatase 78 Units/L (46-116) 11/01/24 05:42 Creatine Kinase 65 Units/L (26-192) 10/31/24 18:38 Troponin I High Sens 5.4 ng/L (4.0-60.0) 10/31/24 18:38 Total Protein 7.1 g/dL (6.4-8.2) 11/01/24 05:42 Albumin 3.3 g/dL (3.4-5.0) L 11/01/24 05:42 Globulin 3.8 g/dL (2.5-4.5) 11/01/24 05:42 Albumin/Globulin Ratio 0.9 Ratio (1.1-2.1) L 11/01/24 05:42 Triglycerides 136 mg/dL (0-150) 10/31/24 18:38 Cholesterol 97 mg/dL (0-200) 10/31/24 18:38 LDL Cholesterol, Calc 38.8 mg/dL (0-100) 10/31/24 18:38 HDL Cholesterol 31 mg/dL (40-60) L 10/31/24 18:38 Cholesterol/HDL Ratio 3.1 (0.0-5.0) 10/31/24 18:38 Specimen Type Clean catch urine 10/31/24 20:43 Urine Color Yellow (YELLOW) 10/31/24 20:43 Urine Appearance Clear (CLEAR) 10/31/24 20:43 Urine pH 6.0 (5.0 - 8.0) 10/31/24 20:43 Ur Specific [place] 1.010 (1.000-1.030) 10/31/24 20:43 Urine Protein 2+ (NEGATIVE) 10/31/24 20:43 Urine Glucose (UA) Negative (NEGATIVE) 10/31/24 20:43 Urine Ketones Negative (NEGATIVE) 10/31/24 20:43 Urine Blood 1+ (NEGATIVE) 10/31/24 20:43 Urine Nitrite Positive (NEGATIVE) 10/31/24 20:43 Urine Bilirubin Negative (NEGATIVE) 10/31/24 20:43 Urine Urobilinogen Normal (NORMAL) 10/31/24 20:43 Ur Leukocyte Esterase Negative (NEGATIVE) 10/31/24 20:43 Urine RBC 0-2 /HPF (0-3) 10/31/24 20:43 Urine WBC 0-2 /HPF (0-5) 10/31/24 20:43 Ur Squamous Epith Cells Few /HPF (NEGATIVE) 10/31/24 20:43 Urine Bacteria 3+ /HPF (NEGATIVE) 10/31/24 20:43 Ur Culture Indicated? Yes/culture set up 10/31/24 20:43 Review of Systems Constitutional: Weakness Eyes: No Symptoms Reported ENT: No Symptoms Reported Respiratory: No Symptoms Reported Cardiovascular: No Symptoms Reported Gastrointestinal: No Symptoms Reported Genitourinary: No Symptoms Reported Musculoskeletal: Other Skin: No Symptoms Reported Neurological: Weakness, Numbness, Change in Speech and Other (FUNEZ, FACIAL DROOP) Physical Exam Vital Signs: Vital Signs Temperature 98.0 F Temperature 98.6 F Pulse Rate [Left] 69 Pulse Rate [Left] 65 Respiratory Rate 18 Respiratory Rate 18 Blood Pressure [Left Arm] 135/79 Blood Pressure [Left Arm] 134/76 O2 Sat by Pulse Oximetry 96 O2 Sat by Pulse Oximetry 96 Oriented: Normal Eyes: Normal Nose: Normal Throat: Dry Respiratory: LLL Diminished Cardiovascular: Normal : Normal Auscultation: Bowel Sounds: Normal Tenderness: Normal Skin: Normal Musculoskeletal: Hand, Motor Deficit and Sensory Deficit Psychiatric: Anxiety Speech Pattern: Appropriate; negative Slurred Assessment/Plan (1) Acute ischemic stroke: Status: Acute Plan: ADMIT, TELENEURO WHILE IN ER CT HEAD ON ADMISSION BP CONTROL, ASPIRIN, STATIN &PLAVIX VERIFY HOME MEDICATION IV ATBX THERAPY CARDIAC MONITORING, CXR ON ADMISSION (2) Hypertension: Qualifiers: Hypertension type: other secondary hypertension Qualified Code(s): I 15.8 - Other secondary hypertension Status: Acute (3) Urinary tract infection: Status: Acute
[2024-11-01] MEDS: NORVASC TAB 2.5 MG PO SCH (08:48)
[2024-11-01] MEDS: PLAVIX PO SCH (08:48)
[2024-11-01] MEDS: LASIX PO SCH (08:49)
[2024-11-01] MEDS: EFFEXOR XR 75 MG CAP 24-HR PO SCH (08:49)
[2024-11-01] MEDS: LOPRESSOR TAB 25 MG PO SCH (08:49)
[2024-11-01] MEDS: LIPITOR TAB 40 MG PO SCH (08:49)
[2024-11-01] MEDS: ASPIRIN EC 81 MG PO SCH (08:49)
[2024-11-01] MEDS: KLOR-CON 10 MEQ TAB PO SCH (08:49)
[2024-11-01] MEDS: ROCEPHIN VIAL 1 GRAM 1 G in NS 100 ML IV 100 ML IV SCH (10:31)
[2024-11-01] MEDS: PLAQUENIL PO SCH (11:33)
--- NOTE | 2024-11-01 13:30 | MRI ---
EXAM: BRAIN W/O CON HISTORY: ischemic changes, zuñiga, hx of cva in 2022; COMPARISON: Head CT 10/31/2024 TECHNIQUE: Multiplanar multisequence MRI of the brain was obtained without contrast using standard departmental protocol. FINDINGS: Diffusion sequences show no abnormal signal. No evidence for acute ischemia. Abnormal signal is present in the left merritt radiata corresponding to the CT findings. But the signal intensity suggests that this is old infarct. Otherwise mendez and white matter have normal differentiation. There is no mass, shift, or hemorrhage. Cerebellar tonsils are at an appropriate level. Normal signal flow void in the central vessels. No abnormal signal on susceptibility sequences. No fluid in the sinuses or mucosal thickening to suggest sinusitis. There is no mastoid effusion. IMPRESSION: 1. No acute findings THIS IS AN ELECTRONICALLY VERIFIED FINAL REPORT 11/01/2024 1:27 PM - Electronically signed by Tarun Campos MD
[2024-11-01] MEDS: ZESTRIL TAB 5 MG PO SCH (14:17)
[2024-11-01] MEDS: NORVASC TAB 2.5 MG ONE (20:33)
[2024-11-02] MEDS: NORCO 5/325 MG TAB PO PRN (00:51)
[2024-11-02 07:00] LABS: MEAN PLATELET VOLUME 8.7 fL (7.4-11.0); RED CELL DISTRIBUTION WIDTH 14.7 % (11.6-16.5)
[2024-11-02 07:20] LABS: CREATININE 0.57 mg/dL (0.55-1.02); eGFR NON BLACK RACES > 60 (>60)
[2024-11-02] MEDS ORDERED: NORVASC TAB 2.5 MG ONE (08:00)
[2024-11-02 12:11] VITALS: BP 125/76; PULSE 62; RESP 18; TEMP 98.1; O2SAT 95
--- NOTE | 2024-11-05 11:01 | W.DIS.FURT ---
Summary of Discharge Discharge Summary of Date Date of Exam: 11/02/24 Admission Date Date of Admission: 10/31/24 Admission Diagnosis Patient Problems (Updated 10/31/24 @ 22:10 by Hollis Garcia) Urinary tract infection (Acute) N39.0 Acute ischemic stroke (Acute) I63.9 Hospital Course: Patient is a 39-year-old female with a past medical history of hypertension, hyperlipidemia, depression/anxiety and prior CVA presented with left frontal headache and facial drooping that started at 6 AM this morning. He does have a history of CVA in 2022 with some residual weakness in the right upper extremity. She was also having some facial numbness. Her blood pressure was elevated at the time. ER workup included CT brain which showed 1.3 cm hypodensity left merritt radiata white matter suggesting a focus of subacute ischemia. No hemorrhagic transformation. Head and neck CTA did not show any acute changes. Chest x-ray was normal. Telemetry neuroconsult was performed and it was advised for patient to be admitted for further imaging including MRI. MRI brain did not show new infarct, it showed chronic infarct from previous CVA. Patient was feeling better, did not have any worsening symptoms. She was ambulating in the room and tolerating p.o. intake. She was stable for discharge home. She will follow-up with PCP as scheduled. She is already taking Plavix and statin. Vital Signs: Vital Signs (72 hours) 10/31/24 18:42 10/31/24 19:15 10/31/24 19:16 Temperature 98.3 F Pulse Rate 83 71 Pulse Rate [Left] Respiratory Rate 16 Blood Pressure 215/111 199/93 Blood Pressure [Left Arm] O2 Sat by Pulse Oximetry 97 98 Oxygen Delivery Method Room Air 10/31/24 19:21 10/31/24 19:21 10/31/24 19:25 Temperature Pulse Rate 73 Pulse Rate [Left] Respiratory Rate 23 Blood Pressure 198/95 178/88 Blood Pressure [Left Arm] O2 Sat by Pulse Oximetry 97 Oxygen Delivery Method 10/31/24 19:25 10/31/24 19:30 10/31/24 19:30 Temperature Pulse Rate 70 70 Pulse Rate [Left] Respiratory Rate 24 Blood Pressure 176/94 Blood Pressure [Left Arm] O2 Sat by Pulse Oximetry 97 97 Oxygen Delivery Method 10/31/24 19:36 10/31/24 19:36 10/31/24 19:40 Temperature Pulse Rate 72 Pulse Rate [Left] Respiratory Rate Blood Pressure 173/115 173/108 Blood Pressure [Left Arm] O2 Sat by Pulse Oximetry 98 Oxygen Delivery Method 10/31/24 19:40 10/31/24 19:45 10/31/24 19:45 Temperature Pulse Rate 71 73 Pulse Rate [Left] Respiratory Rate Blood Pressure 176/106 Blood Pressure [Left Arm] O2 Sat by Pulse Oximetry 97 97 Oxygen Delivery Method 10/31/24 19:50 10/31/24 19:50 10/31/24 19:55 Temperature Pulse Rate 69 Pulse Rate [Left] Respiratory Rate 25 H Blood Pressure 178/103 187/106 Blood Pressure [Left Arm] O2 Sat by Pulse Oximetry 97 Oxygen Delivery Method 10/31/24 19:55 10/31/24 20:00 10/31/24 20:00 Temperature Pulse Rate 69 69 Pulse Rate [Left] Respiratory Rate 27 H 28 H Blood Pressure 189/104 Blood Pressure [Left Arm] O2 Sat by Pulse Oximetry 98 98 Oxygen Delivery Method 10/31/24 20:05 10/31/24 20:05 10/31/24 20:10 Temperature Pulse Rate 67 Pulse Rate [Left] Respiratory Rate 26 H Blood Pressure 187/93 193/94 Blood Pressure [Left Arm] O2 Sat by Pulse Oximetry 98 Oxygen Delivery Method 10/31/24 20:10 10/31/24 20:15 10/31/24 20:15 Temperature Pulse Rate 67 69 Pulse Rate [Left] Respiratory Rate 25 H 27 H Blood Pressure 184/82 Blood Pressure [Left Arm] O2 Sat by Pulse Oximetry 98 97 Oxygen Delivery Method 10/31/24 20:20 10/31/24 20:20 10/31/24 20:24 Temperature Pulse Rate 68 68 Pulse Rate [Left] Respiratory Rate 26 H 23 Blood Pressure 183/88 Blood Pressure [Left Arm] O2 Sat by Pulse Oximetry 97 98 Oxygen Delivery Method 10/31/24 20:25 10/31/24 20:25 10/31/24 20:30 Temperature Pulse Rate 68 Pulse Rate [Left] Respiratory Rate Blood Pressure 191/92 187/90 Blood Pressure [Left Arm] O2 Sat by Pulse Oximetry 98 Oxygen Delivery Method 10/31/24 20:30 10/31/24 20:35 10/31/24 20:35 Temperature Pulse Rate 67 68 Pulse Rate [Left] Respiratory Rate Blood Pressure 186/90 Blood Pressure [Left Arm] O2 Sat by Pulse Oximetry 97 97 Oxygen Delivery Method Room Air 10/31/24 20:40 10/31/24 20:40 10/31/24 20:47 Temperature Pulse Rate 72 92 H Pulse Rate [Left] Respiratory Rate 27 H Blood Pressure 185/88 Blood Pressure [Left Arm] O2 Sat by Pulse Oximetry 97 98 Oxygen Delivery Method 10/31/24 20:52 10/31/24 20:52 10/31/24 21:00 Temperature Pulse Rate 69 Pulse Rate [Left] Respiratory Rate 26 H Blood Pressure 191/93 171/87 Blood Pressure [Left Arm] O2 Sat by Pulse Oximetry 97 Oxygen Delivery Method 10/31/24 21:00 10/31/24 21:15 10/31/24 21:15 Temperature Pulse Rate 69 68 Pulse Rate [Left] Respiratory Rate 23 Blood Pressure 168/89 Blood Pressure [Left Arm] O2 Sat by Pulse Oximetry 97 98 Oxygen Delivery Method 10/31/24 21:30 10/31/24 21:45 10/31/24 21:45 Temperature Pulse Rate 66 65 Pulse Rate [Left] Respiratory Rate 23 21 Blood Pressure 152/80 Blood Pressure [Left Arm] O2 Sat by Pulse Oximetry 96 96 Oxygen Delivery Method 10/31/24 21:45 10/31/24 22:00 10/31/24 22:00 Temperature Pulse Rate 65 68 Pulse Rate [Left] Respiratory Rate 21 20 Blood Pressure 156/81 Blood Pressure [Left Arm] O2 Sat by Pulse Oximetry 96 95 Oxygen Delivery Method 10/31/24 22:15 10/31/24 22:15 10/31/24 22:29 Temperature Pulse Rate 68 Pulse Rate [Left] Respiratory Rate 18 Blood Pressure 158/75 Blood Pressure [Left Arm] O2 Sat by Pulse Oximetry 95 Oxygen Delivery Method Room Air 10/31/24 22:30 10/31/24 22:30 10/31/24 22:31 Temperature Pulse Rate 68 69 Pulse Rate [Left] 68 Respiratory Rate 20 23 23 Blood Pressure Blood Pressure [Left Arm] 171/83 O2 Sat by Pulse Oximetry 98 98 98 Oxygen Delivery Method 10/31/24 22:31 11/01/24 00:00 11/01/24 04:00 Temperature 98.7 F 98.6 F Pulse Rate Pulse Rate [Left] 68 65 Respiratory Rate 18 18 Blood Pressure 171/83 Blood Pressure [Left Arm] 150/80 134/76 O2 Sat by Pulse Oximetry 96 96 Oxygen Delivery Method Room Air 11/01/24 07:00 11/01/24 08:00 11/01/24 11:58 Temperature 98.0 F 97.8 F Pulse Rate Pulse Rate [Left] 69 64 Respiratory Rate 18 18 Blood Pressure Blood Pressure [Left Arm] 135/79 172/92 O2 Sat by Pulse Oximetry 96 95 Oxygen Delivery Method Room Air Room Air Room Air 11/01/24 15:48 11/01/24 19:00 11/01/24 20:00 Temperature 98.1 F 98.2 F Pulse Rate Pulse Rate [Left] 70 68 Respiratory Rate 19 19 Blood Pressure Blood Pressure [Left Arm] 156/90 163/77 O2 Sat by Pulse Oximetry 96 96 Oxygen Delivery Method Room Air Room Air Room Air 11/01/24 21:00 11/02/24 00:00 11/02/24 00:51 Temperature 97.8 F Pulse Rate Pulse Rate [Left] 64 Respiratory Rate 19 16 Blood Pressure Blood Pressure [Left Arm] 136/76 139/85 O2 Sat by Pulse Oximetry 95 Oxygen Delivery Method Room Air 11/02/24 01:51 11/02/24 04:00 11/02/24 07:00 Temperature 98.0 F Pulse Rate Pulse Rate [Left] 61 Respiratory Rate 16 19 Blood Pressure Blood Pressure [Left Arm] 145/81 O2 Sat by Pulse Oximetry 96 Oxygen Delivery Method Room Air Room Air 11/02/24 08:00 Temperature 98.3 F Pulse Rate Pulse Rate [Left] 64 Respiratory Rate 19 Blood Pressure Blood Pressure [Left Arm] 141/85 O2 Sat by Pulse Oximetry 96 Oxygen Delivery Method Room Air Labs: Laboratory Last Values WBC 9.4 X10^3/uL (3.6-10.0) 11/02/24 05:47 RBC 4.85 X10^6/uL (3.5-5.4) 11/02/24 05:47 Hgb 13.9 g/dL (12.0-16.0) 11/02/24 05:47 Hct 41.6 % (36.0-47.0) 11/02/24 05:47 MCV 85.7 fL (80.0-100.0) 11/02/24 05:47 MCH 28.6 pg (27.0-34.0) 11/02/24 05:47 MCHC 33.4 g/dL (33.0-35.0) 11/02/24 05:47 RDW 14.7 % (11.6-16.5) 11/02/24 05:47 Plt Count 289 X10^3/uL (150.0-450.0) 11/02/24 05:47 MPV 8.7 fL (7.4-11.0) 11/02/24 05:47 Neut % (Auto) 54.7 % (42.0-75.0) 11/02/24 05:47 Lymph % (Auto) 37.1 % (21.0-51.0) 11/02/24 05:47 Swain % (Auto) 6.1 % (0.0-13.0) 11/02/24 05:47 Eos % (Auto) 1.7 % (0.9-2.9) 11/02/24 05:47 Baso % (Auto) 0.4 % (0.2-1.0) 11/02/24 05:47 Neut # (Auto) 5.1 x10^3/uL (2.2-4.8) H 11/02/24 05:47 Lymph # (Auto) 3.5 X10^3/uL (1.3-2.9) H 11/02/24 05:47 Swain # (Auto) 0.6 x10^3/uL (0.3-0.8) 11/02/24 05:47 Eos # (Auto) 0.2 x10^3/uL (0.0-0.2) 11/02/24 05:47 Baso # (Auto) 0.0 X10^3/uL (0.0-0.1) 11/02/24 05:47 Absolute Nucleated RBC 0.0 /100WBC 11/02/24 05:47 PT 13.1 SECONDS (11.8-14.3) 10/31/24 18:38 INR Target Range - 10/31/24 18:38 INR 0.98 (0.8-1.3) 10/31/24 18:38 APTT 35.8 SECONDS (22.9-36.5) 10/31/24 18:38 PTT Comment - 10/31/24 18:38 Fibrinogen 408 mg/dL (239-489) 10/31/24 18:38 Sodium 142 mmol/L (136-145) 11/02/24 05:47 Corrected Sodium TNP 11/02/24 05:47 Potassium 3.7 mmol/L (3.5-5.1) 11/02/24 05:47 Chloride 104 mmol/L (98-107) 11/02/24 05:47 Carbon Dioxide 31.2 mmol/L (21-32) 11/02/24 05:47 BUN 8 mg/dL (7-18) 11/02/24 05:47 Creatinine 0.57 mg/dL (0.55-1.02) 11/02/24 05:47 Est GFR (MDRD) Af Amer > 60 (>60) 11/02/24 05:47 Est GFR (MDRD) Non-Af > 60 (>60) 11/02/24 05:47 Glucose 89 mg/dL (65-99) 11/02/24 05:47 Calcium 8.5 mg/dL (8.5-10.1) 11/02/24 05:47 Corrected Calcium TNP 11/02/24 05:47 Magnesium 2.0 mg/dL (2.0-2.9) 11/01/24 05:42 Total Bilirubin 0.80 mg/dL (0.2-1.0) 11/02/24 05:47 AST 12 Units/L (15-37) L 11/02/24 05:47 ALT 17 Units/L (12-78) 11/02/24 05:47 Alkaline Phosphatase 79 Units/L (46-116) 11/02/24 05:47 Creatine Kinase 65 Units/L (26-192) 10/31/24 18:38 Troponin I High Sens 5.4 ng/L (4.0-60.0) 10/31/24 18:38 Total Protein 7.4 g/dL (6.4-8.2) 11/02/24 05:47 Albumin 3.5 g/dL (3.4-5.0) 11/02/24 05:47 Globulin 3.9 g/dL (2.5-4.5) 11/02/24 05:47 Albumin/Globulin Ratio 0.9 Ratio (1.1-2.1) L 11/02/24 05:47 Triglycerides 136 mg/dL (0-150) 10/31/24 18:38 Cholesterol 97 mg/dL (0-200) 10/31/24 18:38 LDL Cholesterol, Calc 38.8 mg/dL (0-100) 10/31/24 18:38 HDL Cholesterol 31 mg/dL (40-60) L 10/31/24 18:38 Cholesterol/HDL Ratio 3.1 (0.0-5.0) 10/31/24 18:38 Specimen Type Clean catch urine 10/31/24 20:43 Urine Color Yellow (YELLOW) 10/31/24 20:43 Urine Appearance Clear (CLEAR) 10/31/24 20:43 Urine pH 6.0 (5.0 - 8.0) 10/31/24 20:43 Ur Specific [place] 1.010 (1.000-1.030) 10/31/24 20:43 Urine Protein 2+ (NEGATIVE) 10/31/24 20:43 Urine Glucose (UA) Negative (NEGATIVE) 10/31/24 20:43 Urine Ketones Negative (NEGATIVE) 10/31/24 20:43 Urine Blood 1+ (NEGATIVE) 10/31/24 20:43 Urine Nitrite Positive (NEGATIVE) 10/31/24 20:43 Urine Bilirubin Negative (NEGATIVE) 10/31/24 20:43 Urine Urobilinogen Normal (NORMAL) 10/31/24 20:43 Ur Leukocyte Esterase Negative (NEGATIVE) 10/31/24 20:43 Urine RBC 0-2 /HPF (0-3) 10/31/24 20:43 Urine WBC 0-2 /HPF (0-5) 10/31/24 20:43 Ur Squamous Epith Cells Few /HPF (NEGATIVE) 10/31/24 20:43 Urine Bacteria 3+ /HPF (NEGATIVE) 10/31/24 20:43 Ur Culture Indicated? Yes/culture set up 10/31/24 20:43 Reason For Visit: ACUTE ISCHEMIC STROKE, UTI Discharge Diagnosis All Active Problems (Updated 10/31/24 @ 22:10 by Hollis Garcia) Urinary tract infection (Acute) Acute ischemic stroke (Acute) Allergic symptoms (Acute) Hypertension (Acute) Pyorrhea gum disease (Acute) Dental caries into pulp (Acute) Sinusitis, acute (Acute) Cellulitis of face (Acute) Plan of Treatment: Continue with present treatment and follow up plan. Pt is to keep follow up appointment as instructed and take medications as ordered. Discharge Medications Discharge Medications: No Known Allergies Allergy (Verified 10/31/24 18:50) CONTINUE taking the following medications amlodipine 2.5 mg tablet 2.5 mg PO BID 10/31/24 [History] atorvastatin 40 mg tablet 40 mg PO QDAY 10/31/24 [History] clonidine HCl 0.1 mg tablet 0.1 mg PO TID 10/31/24 [History] clopidogrel 75 mg tablet 75 mg PO QDAY 10/31/24 [History] furosemide 40 mg tablet 40 mg PO QDAY 10/31/24 [History] hydroxychloroquine 200 mg tablet 200 mg PO BID 10/31/24 [History] metoprolol tartrate 25 mg tablet 25 mg PO BID 10/31/24 [History] potassium chloride 10 mEq tablet,extended release 10 meq PO QDAY 10/31/24 [History] venlafaxine 75 mg capsule,extended release 24 hr 75 mg PO QDAY 10/31/24 [History] New Prescriptions lisinopril 5 mg tablet 5 mg PO DAILY 30 days #30 tabs 11/02/24 [Rx] Discharge Disposition Discharge Disposition: home Discharge Condition: stable Discharge Plan Discharge Plan Hospital Course: Patient is a 39-year-old female with a past medical history of hypertension, hyperlipidemia, depression/anxiety and prior CVA presented with left frontal headache and facial drooping that started at 6 AM this morning. He does have a history of CVA in 2022 with some residual weakness in the right upper extremity. She was also having some facial numbness. Her blood pressure was elevated at the time. ER workup included CT brain which showed 1.3 cm hypodensity left merritt radiata white matter suggesting a focus of subacute ischemia. No hemorrhagic transformation. Head and neck CTA did not show any acute changes. Chest x-ray was normal. Telemetry neuroconsult was performed and it was advised for patient to be admitted for further imaging including MRI. MRI brain did not show new infarct, it showed chronic infarct from previous CVA. Patient was feeling better, did not have any worsening symptoms. She was ambulating in the room and tolerating p.o. intake. She was stable for discharge home. She will follow-up with PCP as scheduled. She is already taking Plavix and statin. Patient Disposition: 01 HOME, SELF-CARE Condition: Stable Health Concerns: Post Hospitalization: new medications and changes needed to prevent readmission or further decline. Pt educated and given instructions on all concerns. Plan of Treatment: Continue with present treatment and follow up plan. Pt is to keep follow up appointment as instructed and take medications as ordered. Prescription drug monitoring program results: PDMP reviewed and no concerns identified Prescriptions: New lisinopril 5 mg Tablet 5 mg PO QDAY Qty: 30 0RF cephalexin 500 mg Capsule 500 mg PO BID 5 Days Qty: 10 0RF Continued furosemide 40 mg tablet 40 mg PO QDAY atorvastatin 40 mg tablet 40 mg PO QDAY clonidine HCl 0.1 mg tablet 0.1 mg PO TID venlafaxine 75 mg capsule,extended release 24hr 75 mg PO QDAY amlodipine 2.5 mg tablet 2.5 mg PO BID potassium chloride 10 mEq tablet extended release 10 meq PO QDAY clopidogrel 75 mg tablet 75 mg PO QDAY hydroxychloroquine 200 mg tablet 200 mg PO BID metoprolol tartrate 25 mg tablet 25 mg PO BID Orders to Discharge Patient Discharge Orders: Discharge (Routine); Ordered 11/02/24 Ordered By: Jocy Bermudez Follow ups/Referrals Follow ups/Referrals: MARCEL PRATT [Primary Care Provider, MEDICAL] - 3 days Instructions Instructions: Steps to Quit Smoking, [id number], Urinary Tract Infection, Female, Health Risks of Smoking, Stroke Prevention, [id number], Warning Signs of a Stroke, Cephalexin tablets or capsules, Lisinopril tablets, E. Coli Infection Stand Alone Forms: Excuse From Work or School, Find Help Web Site, Post Hospital Follow Up Care Print Language: MALTESE
== END 2024-11-02 12:30 | disposition home or self-care (01) ==
LOC: ER 18:32 → MED/SURG 18:32
PROVIDERS: ADMIT Internal Medicine; ATTEND Internal Medicine
DX: B96.29 Other Escherichia coli [E. coli] as the cause of diseases classified elsewhere; E87.6 Hypokalemia; F32.89 Other specified depressive episodes; Z16.29 Resistance to other single specified antibiotic; I10 Essential (primary) hypertension; E78.5 Hyperlipidemia, unspecified; R51.9 Headache, unspecified; Z72.0 Tobacco use; I69.353 Hemiplegia and hemiparesis following cerebral infarction affecting right non-dominant side; I63.89 Other cerebral infarction; R29.810 Facial weakness; R73.09 Other abnormal glucose; Z79.01 Long term (current) use of anticoagulants; F41.8 Other specified anxiety disorders; N39.0 Urinary tract infection, site not specified